=== PATIENT | female | born 1970 | race Caucasian/White ===

== ENCOUNTER → 2016-12-23 | Outpatient (CLI) | payer OTHER ==
[~2016-12-23] MED LIST: Motrin PO; Percocet 7.5/325,End PO
== END | disposition home or self-care (01) ==
LOC: CDC 11:34
DX: Z01.810 Encounter for preprocedural cardiovascular examination (principal); S82.135D Nondisplaced fracture of medial condyle of left tibia, subsequent encounter for closed fracture with routine healing
CPT/HCPCS: 93000